=== PATIENT | female | born 2000 | race African-American/Black ===

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

== ENCOUNTER 2021-11-25 08:54 | Outpatient (CLI) | payer OTHER, SELFPAY ==
--- NOTE | ~2021-11-25 | MR_ITS ---
EXAMINATION: MR shoulder RT wo con DATE: 11/25/2021 09:52 INDICATION: Acute onset right shoulder pain TECHNIQUE: Magnetic resonance imaging (MRI) of the right shoulder was performed without intravenous c ontrast. Sequences included axial PD-weighted FS FSE, coronal oblique PD-weighted FS FSE, coronal obl ique T2-weighted FS FSE, sagittal PD-weighted FS FSE, and sagittal T1-weighted SE. COMPARISON: None. FINDINGS: Coracoacromial arch: The acromion undersurface is curved in morphology (type II). The coracoacromial ligament is normal. A cromioclavicular joint is normal. Rotator cuff: Mild tendinopathy at the distal aspect of the anterior supraspinatus tendon without discrete tear. Th e infraspinatus and teres minor tendons are normal. Subscapularis tendon is normal. Normal rotator cu ff muscle bulk and signal. Biceps tendon, glenoid labrum and glenohumeral cartilage: Long head of the biceps tendon is normal. Glenoid labrum is normal. Glenohumeral cartilage is normal. Fluid: Physiologic amount of fluid in the glenohumeral joint and biceps tendon sheath. No loose osteochondr al bodies. Small amount of fluid in the subacromial/subdeltoid bursa consistent with mild bursitis. Bones: Normal marrow signal with no edema, fracture or abnormal marrow replacing process. IMPRESSION: 1. Mild tendinopathy without discrete tear of the anterior distal supraspinatus tendon. 2. Mild subacromial/subdeltoid bursitis. Reviewed, dictated and finalized at location B.
== END 2021-11-25 08:55 | disposition home or self-care (01) ==
PROVIDERS: PCP Nurse Practitioner; Visit Provider Nurse Practitioner
DX: M25.511 Pain in right shoulder (principal); M75.51 Bursitis of right shoulder
CPT/HCPCS: 73221